=== PATIENT | male | born 1950 | race Caucasian/White ===

== ENCOUNTER 2020-06-03 07:02 | Outpatient (CLI) | payer MEDICARE | END 2020-06-03 23:59 | disposition home or self-care (01) | LOC: LAB 07:02 | PROVIDERS: ATTEND Ophthalmology | DX: Z01.812 Encounter for preprocedural laboratory examination (principal); Z20.828 Contact with and (suspected) exposure to other viral communicable diseases; H25.9 Unspecified age-related cataract ==